=== PATIENT | male | born 1990 | race Caucasian/White ===

== ENCOUNTER 2017-11-10 21:43 | Emergency (ER) | payer OTHER ==
[2017-11-11] MEDS: KETOROLAC 15 MG INJ IV (00:15)
[2017-11-11] MEDS: METOCLOPRAMIDE 10 MG INJ IV (00:15)
[2017-11-11] MEDS: DIPHENHYDRAMINE 50 MG INJ IV (00:16)
[2017-11-11] MEDS: SOD CHLORIDE 0.9% 1,000 ML IV (00:16)
[2017-11-11 00:34] LABS: ADD MAN DIFF? NO
[2017-11-11 00:36] LABS: WHITE BLOOD COUNT 6.9 10^3/ul (4.8-10.8)
[2017-11-11 00:36] LABS: BASOPHIL # 0.1 10^3/ul (0.0-0.1); BASOPHILS % 0.7 % (0.0-2.0); EOSINOPHILS # 0.3 10^3/ul (0.0-0.5); EOSINOPHILS % 4.4 % (0.0-7.0); HEMATOCRIT 47.3 % (42.0-52.0); HEMOGLOBIN 16.3 g/dl (14.0-18.0); LYMPHOCYTES # 2.3 10^3/ul (0.8-2.9); LYMPHOCYTES % 33.1 % (15.0-51.0); MEAN CORPUSCULAR HEMOGLOBIN 31.1 pg (29.0-33.0); MEAN CORPUSCULAR HGB CONC 34.5 g/dl (32.0-37.0); MEAN CORPUSCULAR VOLUME 90.3 fl (82.0-101.0); MEAN PLATELET VOLUME 10.6 fl (7.4-10.4); MONOCYTE # 0.7 10^3/ul (0.3-0.9); MONOCYTES % 10.1 % (0.0-11.0); NEUTROPHIL # 3.5 10^3/ul (1.6-7.5); NEUTROPHILS % 51.4 % (39.0-77.0); PLATELET COUNT 227 10^3/UL (140-415); RED BLOOD COUNT 5.24 10^6/ul (4.70-6.10); RED CELL DISTRIBUTION WIDTH 12.4 % (11.5-14.5)
[2017-11-11 00:43] LABS: ADD UMIC NO; UR ASCORBIC ACID NEGATIVE (NEGATIVE); UR BILIRUBIN (Dip) NEGATIVE (NEGATIVE); UR BLOOD (Dip) NEGATIVE (NEGATIVE); UR CLARITY CLEAR (CLEAR); UR COLOR YELLOW (YELLOW); UR GLUCOSE (Dip) NEGATIVE (NEGATIVE); UR KETONES (Dip) NEGATIVE (NEGATIVE); UR LEUKOCYTE ESTERASE (Dip) NEGATIVE Leu/ul (NEGATIVE); UR NITRITE (Dip) NEGATIVE (NEGATIVE); UR SPECIFIC GRAVITY (Dip) 1.025 (1.003-1.030); UR TOTAL PROTEIN (Dip) NEGATIVE (NEGATIVE); UR UROBILINOGEN (Dip) NEGATIVE (NEGATIVE)
[2017-11-11 01:01] LABS: ALANINE AMINOTRANSFERASE 68 IU/L (13-69); ALBUMIN 4.3 g/dl (3.3-4.9); ALBUMIN/GLOBULIN RATIO 1.48; ALKALINE PHOSPHATASE 59 IU/L (42-121); ANION GAP 17 (8-16); ASPARTATE AMINO TRANSFERASE 61 IU/L (15-46); BILIRUBIN,INDIRECT 0.9 mg/dl (0-1.1); BILIRUBIN,TOTAL 0.9 mg/dl (0.2-1.3); BLOOD UREA NITROGEN 16 mg/dl (7-20); CALCIUM 9.4 mg/dl (8.4-10.2); CARBON DIOXIDE 28 mmol/L (21-31); CHLORIDE 105 mmol/L (97-110); CREATININE 0.94 mg/dl (0.61-1.24); GLUCOSE 88 mg/dl (70-220); POTASSIUM 3.6 mmol/L (3.5-5.1); SODIUM 146 mmol/L (135-144); TOTAL PROTEIN 7.2 g/dl (6.1-8.1)
== END 2017-11-11 01:46 | disposition home or self-care (01) ==
LOC: FTE 21:43
DX: R51 Headache (principal)
CPT/HCPCS: 80053; 81003; 85025; 96374; 96375; 99284-25

== ENCOUNTER 2017-11-24 21:22 | Emergency (ER) | payer OTHER ==
[2017-11-24] MEDS: HYDROCODONE/APAP (5/325) TAB PO (22:42)
== END 2017-11-24 23:56 | disposition home or self-care (01) ==
LOC: FTE 21:22
DX: R51 Headache (principal)
CPT/HCPCS: 70450; 99284-25

== ENCOUNTER 2018-07-27 21:09 | Emergency (ER) | payer OTHER ==
[2018-07-28] MEDS: SOD CHLORIDE 0.9% 1,000 ML IV (00:07)
[2018-07-28] MEDS: KETOROLAC 30 MG INJ IV (00:08)
== END 2018-07-28 01:52 | disposition home or self-care (01) ==
LOC: FTE 07-28 01:52
DX: J32.9 Chronic sinusitis, unspecified (principal)
CPT/HCPCS: 87400; 96374; 99284-25

== ENCOUNTER 2018-09-06 21:07 | Emergency (ER) | payer OTHER ==
[2018-09-07] MEDS: KETOROLAC 30 MG INJ IM (00:31)
[2018-09-07] MEDS: morphine 4 MG/ML VIAL IM (00:31)
== END 2018-09-07 02:48 | disposition home or self-care (01) ==
LOC: FTE 21:07
DX: M54.5 Low back pain (principal); M62.830 Muscle spasm of back
CPT/HCPCS: 72072; 72100; 96372; 99284-25